=== PATIENT | female | born 1990 | race Caucasian/White ===

== ENCOUNTER 2016-05-24 20:55 | Emergency (ER) | payer OTHER | END 2016-05-24 23:50 | disposition home or self-care (01) | LOC: FER 20:55 | DX: S63.501A Unspecified sprain of right wrist, initial encounter (principal); F17.210 Nicotine dependence, cigarettes, uncomplicated; W19.XXXA Unspecified fall, initial encounter; Y92.009 Unspecified place in unspecified non-institutional (private) residence as the place of occurrence of the external cause | CPT/HCPCS: 73090; 73110 ==

== ENCOUNTER 2016-09-15 08:37 | Emergency (ER) | payer OTHER | END 2016-09-15 09:43 | disposition home or self-care (01) | LOC: FER 08:37 | DX: S80.861A Insect bite (nonvenomous), right lower leg, initial encounter (principal); L08.9 Local infection of the skin and subcutaneous tissue, unspecified; F17.210 Nicotine dependence, cigarettes, uncomplicated; W57.XXXA Bitten or stung by nonvenomous insect and other nonvenomous arthropods, initial encounter | CPT/HCPCS: 99282 ==

== ENCOUNTER 2021-05-05 17:39 | Emergency (ER) | payer OTHER ==
[~2021-05-05 17:39] MED LIST: BROMFED DM COU473 ML PO; FLEXERIL5 MG PO; HYDROCODON-ACE1 EAC4 PO; IBU600 MG PO; PROVENTIL HFA6.7 GM INH; TESSALON PERLE100 MG PO; VIBRAMYCIN100 MG PO; ZOFRAN4 MG PO
[2021-05-05 18:19] LABS: BASOPHIL 0.4 % (0-2); EOSINOPHIL 0.4 % (0-5); HCT 46.7 % (37.0-47.0); HGB 15.7 g/dl (12.5-16.0); LYMPHOCYTE 26.2 % (15-48); MCH 28.2 pg (25.0-31.0); MCHC 33.6 g/dL (32.0-36.0); MCV 83.8 fL (78.0-100.0); MONOCYTE 3.9 % (0-12); MPV 10.7 fL (6.0-9.5); NEUTROPHIL 68.8 % (41-80); NRBC 0; PLT 222 K/uL (150-400); RBC 5.57 M/uL (4.20-5.40); RDW 12.4 % (11.5-14.0); WBC 7.7 K/uL (4.0-10.5)
[2021-05-05 18:38] LABS: INR 1.02 (0.9-1.2); PROTHROMBIN TIME 12.8 SECONDS (11.8-13.4); PTT 26.4 SECONDS (24.4-34.7)
[2021-05-05 18:49] LABS: ALBUMIN 4.2 g/dL (3.4-5.0); BILIRUBIN - TOTAL 0.5 mg/dL (0.2-1.0); BUN/CREAT RATIO (CALC) 11.5 RATIO; CREATININE 0.61 mg/dL (0.51-0.95); GLOBULIN (CALCULATION) 2.9 g/dL; POTASSIUM 3.9 mmol/L (3.5-5.1); TOTAL PROTEIN 7.1 g/dL (6.4-8.2)
[2021-05-05 19:29] LABS: CORONAVIRUS 2019 SARS-COV-2 NEGATIVE (NEGATIVE); INFLUENZA A NAA NEGATIVE (NEGATIVE)
== END 2021-05-05 19:04 | disposition left against medical advice (07) ==
LOC: FER 17:39
PROVIDERS: Emergency Medicine
DX: R07.89 Other chest pain (principal); Z53.29 Procedure and treatment not carried out because of patient's decision for other reasons; Z20.822 Contact with and (suspected) exposure to COVID-19
CPT/HCPCS: 36415; 80053; 80305; 84484; 85025; 85610; 85730; 93005; U0002